=== PATIENT | female | born 1985 | race Caucasian/White ===

== ENCOUNTER → 2016-12-02 | Outpatient (CLI) | payer OTHER ==
[~2016-12-02] MED LIST: PREN-92 PO
--- NOTE | 2016-12-02 12:07 | DI ---
EXAM: US PELVIC NON OB W/TRANS VAG Transabdominal and Transvaginal LOCATION OF DICTATION: Car HISTORY: ITS.REASON: R10.31 Right lower quadrant pain COMPARISON: No prior studies available for comparison. TECHNIQUE: Multiple real-time grayscale sonographic images were obtained of the pelvis transabdominally and transvaginally with and without color flow and spectral analysis. FINDINGS: The uterus is normal in size measuring 9.5 x 3.29 x 4.83 cm. The uterus is homogenous in appearance without fibroids. Intrauterine device is demonstrated within the region of the fundus and appears to be centrally located. Small amount of fluid within the endometrial canal. Prominent parametrial vessels/varices are noted. Recommend clinical correlation for pelvic venous congestion syndrome. There is no free fluid in the pelvis or either upper quadrant. The right ovary measures 2.02 x 2.58 x 2.28 cm. The left ovary measures 12.52 x 2.98 x 2.64 cm. There is a simple left ovarian cyst measuring 1.8 x 1.8 x 1.9 cm. No abnormal adnexal masses. There is normal color flow demonstrated within both ovaries. IMPRESSION: 1. Prominent parametrial vessels/varices bilaterally. Recommend correlation for pelvic venous congestion syndrome. 2. There is a 1.9 cm left ovarian cyst. The ovaries are otherwise unremarkable. 3. Intrauterine device located within the endometrial canal about the fundus. .
== END ==
LOC: IMA 10:31
PROVIDERS: ATTEND Physician Assistant Medical
DX: I86.2 Pelvic varices (principal); N83.292 Other ovarian cyst, left side; Z97.5 Presence of (intrauterine) contraceptive device; R10.31 Right lower quadrant pain